=== PATIENT | male | born 1960 | race Caucasian/White ===

== ENCOUNTER 2016-10-23 19:56 | Inpatient (IN) | payer OTHER ==
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
[2016-10-23 20:58] VITALS: BMI 25.7
[2016-10-23] MEDS ORDERED: ACETAMINOPHEN 325 MG TABLET (FP) PO PRN (21:00)
[2016-10-23] MEDS ORDERED: MAGNESIUM HYDROX 2400MG/30ML ORAL SUSPENSION 30 ML CUP PO PRN (21:00)
[2016-10-23] MEDS ORDERED: MENTHOL/PHENOL 1 EACH UD MM PRN (21:00)
[2016-10-23] MEDS ORDERED: hydrOXYzine PAMOATE 50 MG CAPSULE (FP) PO PRN (21:00)
[2016-10-23] MEDS ORDERED: MAG HYDROX/AL HYDROX/SIMETH 30 ML UNIT-DOSE CUP PO PRN (21:00)
[2016-10-23] MEDS ORDERED: guaiFENesin/D-METHORPHAN HB 10 ML UNIT-DOSE CUPS PO PRN (21:00)
[2016-10-23] MEDS ORDERED: NICOTINE POLACRILEX 2 MG GUM BUC PRN (21:00)
[2016-10-23] MEDS ORDERED: chlordiazePOXIDE HCL 25 MG CAPSULE PO ONE (21:00)
[2016-10-23] MEDS ORDERED: diphenhydrAMINE HCL 50 MG CAPSULE PO PRN (21:00)
[2016-10-23] MEDS ORDERED: chlordiazePOXIDE HCL 25 MG CAPSULE PO PRN (21:00)
[2016-10-23] MEDS ORDERED: LOPERAMIDE HCL 2 MG CAPSULE PO PRN (21:00)
[2016-10-23] MEDS ORDERED: IBUPROFEN 400 MG TABLET (FP) PO PRN (21:00)
[2016-10-23] MEDS ORDERED: MAGNESIUM CITRATE 300 ML BOTTLE PO PRN (21:00)
[2016-10-23] MEDS ORDERED: P-EPHED 60MG/TRIPROLIDI 2.5MG TABLET PO PRN (21:00)
[2016-10-23] MEDS ORDERED: cloNIDine HCL 0.1 MG TABLET PO PRN (21:02)
[2016-10-23] MEDS: THIAMINE HCL 100 MG TABLET (FP) PO SCH (22:55)
[2016-10-23] MEDS: chlordiazePOXIDE HCL 25 MG CAPSULE PO SCH (23:13)
[2016-10-24] MEDS: chlordiazePOXIDE HCL 25 MG CAPSULE PO SCH ×4 (05:47→22:25)
--- NOTE | 2016-10-24 09:07 | CONSULT ---
[facility] Psychiatric Consult - Data Date of interview: 10/24/16 Admission source: [facility] Identifying data: This is 56 years old male with no psychiatric hospitalization history intoxicated with: Alcohol, Cannabis and Nicotine Substance Abuse History: - Smoking Cessation. Smoking history: Current every day smoker. Have you smoked in the past 12 months: Yes. Aproximately how many cigarettes per day: 5. Cigars Per Day: 1 (Occasional.). Hx Chewing Tobacco Use : No. Initiated information on smoking cessation: Yes. 'Breaking Loose' booklet given: 10/23/16. - Substance & Tx. History. Hx Alcohol Use: Yes. Hx Substance Use: Yes. Substance Use Type: Alcohol, Marijuana. Hx Substance Use Treatment: Yes (DETOX ). - Substances Abused. Alcohol. Route: Oral. Frequency: Daily. Amount used: 1 PINT OF LIQUOR. Age of first use: 15. Date of Last Use: 10/22/16. Marijuana/Hashish. Route: Smoking. Frequency: 1-2 times per week. Amount used: $5. Age of first use: 15. Date of Last Use: 12/26 Medical History: Seizure history, Hepc+, Psychiatric History: Patient reports mhistoryt of depression, rep[orts no history ofm p[-sychiatric hospitalization, reports no meications taking prior to admsision, reports suicidal ideations about 2 weeks ago being sober and asking to start medications for depression Physical/Sexual Abuse/Trauma History: Denies Additional Comment: Prozac 10mg po qd Mental Status Exam - Mental Status Exam Alert and Oriented to: Person Cognitive Function: Fair Patient Appearance: Well Groomed Mood: Anxious Affect: Mood Congruent Patient Behavior: Cooperative Speech Pattern: Appropriate Voice Loudness: Normal Thought Process: Goal Oriented Thought Disorder: Being Controlled Hallucinations: Denies Suicidal Ideation: Denies Homicidal Ideation: Denies Insight/Judgement: Fair Sleep: Difficulty falling asleep Appetite: Fair Muscle strength/Tone: Normal Gait/Station: Normal Additional Comments: Prozac 10mg poqd Psychiatric Findings - Problem List ([place] 1, 2,3) (1) Alcohol dependence with withdrawal, uncomplicated Current Visit: Yes Status: Chronic (2) Cannabis dependence Current Visit: Yes Status: Chronic (3) Nicotine dependence Current Visit: Yes Status: Chronic Qualifiers: Nicotine product type: cigarettes Substance use status: uncomplicated Qualified Code(s): F17.210 - Nicotine dependence, cigarettes, uncomplicated (4) Drug-induced mood disorder Current Visit: Yes Status: Suspected - Initial Treatment Plan Initial Treatment Plan: Prozac 10mg poqd
--- NOTE | 2016-10-24 09:58 | PN ---
S CIWA - CIWA Score Nausea/Vomitin-No Nausea/No Vomiting Muscle Tremors: 4-Moderate,w/Arms Extend Anxiety: 3 Agitation: 3 Paroxysmal Sweats: 3 Orientation: 0-Oriented Tacttile Disturbances: 0-None Auditory Disturbances: 0-None Visual Disturbances: 0-None Headache: 0-None Present CIWA-Ar Total Score: 13 BHS Progress Note (SOAP) Subjective: shakes sweats headache interrupted sleep body aches Objective: 10/24/16 09:57 Vital Signs Temperature 97.9 F 10/24/16 09:30 Pulse Rate 81 10/24/16 09:30 Respiratory Rate 16 10/24/16 09:30 Blood Pressure 130/99 10/24/16 09:30 O2 Sat by Pulse Oximetry (%) labs pending awake/alert ambulating no acute distress Assessment: 10/24/16 09:57 withdrawal sx Plan: continue detox increase fluids labs pending
[2016-10-24 10:04] LABS: MCHC 33.4 g/dl (32.0-35.9); MEAN PLT VOLUME 9.7 fl (7.5-11.1); PLATELET COUNT 51 K/MM3 (134-434); RDW 13.4 % (11.9-15.9); WHITE BLOOD COUNT 4.9 K/mm3 (4.0-10.0)
[2016-10-24] MEDS: PRENATAL VITAMINS W/ FOLIC ACID TABLET (FP) PO SCH (10:05)
[2016-10-24] MEDS: FLUoxetine HCL 10 MG CAPSULE (FP) PO SCH (10:05)
[2016-10-24] MEDS: levETIRAcetam 250 MG TABLET (FP) PO SCH ×2 (10:05→22:25)
[2016-10-24] MEDS: LORATADINE 10 MG TABLET PO SCH (10:06)
[2016-10-24] MEDS: NICOTINE 14 MG/24 HOURS TOPICAL PATCH TD SCH (10:08)
[2016-10-24 10:09] LABS: ALBUMIN 3.4 g/dl (3.4-5.0); ANION GAP 7 (8-16); CALCIUM 8.7 mg/dL (8.5-10.1); CO2 31 mmol/L (21-32); GLUCOSE,RANDOM 113 mg/dL (74-106)
[2016-10-24 10:14] LABS: ALK PHOS 71 U/L (45-117); BILIRUBIN,TOTAL 0.9 mg/dL (0.2-1.0); CREATININE 0.8 mg/dL (0.7-1.3); SGOT/AST 104 U/L (15-37); SGPT/ALT 72 U/L (12-78); TOT PROT 7.4 g/dl (6.4-8.2)
--- NOTE | 2016-10-24 13:02 | EKG ---
Test Reason : Blood Pressure : / mmHG Vent. Rate : 075 BPM Atrial Rate : 075 BPM P-R Int : 120 ms QRS Dur : 076 ms QT Int : 378 ms P-R-T Axes : 074 023 036 degrees QTc Int : 422 ms NORMAL SINUS RHYTHM POSSIBLE LEFT ATRIAL ENLARGEMENT BORDERLINE ECG NO PREVIOUS ECGS AVAILABLE Confirmed by XU CARD MD ([id number]) on 10/24/2016 1:01:39 PM Referred By: Confirmed By:XU CARD MD
[2016-10-24] MEDS: THIAMINE HCL 100 MG TABLET (FP) PO SCH (22:25)
[2016-10-25] MEDS: chlordiazePOXIDE HCL 25 MG CAPSULE PO SCH ×3 (06:17→17:38)
--- NOTE | 2016-10-25 10:10 | PN ---
S CIWA - CIWA Score Nausea/Vomitin Muscle Tremors: 3 Anxiety: 2 Agitation: 2 Paroxysmal Sweats: 1-Minimal Palms Moist Orientation: 0-Oriented Tacttile Disturbances: 1-Very Mild Itch/Numbness Auditory Disturbances: 1-Very Mild Visual Disturbances: 1-Very Mild Sensitivity Headache: 2-Mild CIWA-Ar Total Score: 16 S Progress Note (SOAP) Subjective: ALERT,IRRITABLE,ANXIOUS,INTERRUPTED SLEEP,TREMOR Objective: 10/25/16 10:09 Vital Signs Temperature 99.0 F 10/25/16 09:35 Pulse Rate 81 10/25/16 09:35 Respiratory Rate 16 10/25/16 09:35 Blood Pressure 112/71 10/25/16 09:35 O2 Sat by Pulse Oximetry (%) Laboratory Last Values WBC 4.9 K/mm3 (4.0-10.0) 10/24/16 08:00 RBC 4.09 M/mm3 (4.00-5.60) 10/24/16 08:00 Hgb 13.5 GM/dL (11.7-16.9) 10/24/16 08:00 Hct 40.5 % (35.4-49) 10/24/16 08:00 MCV 99.0 fl (80-96) H 10/24/16 08:00 MCHC 33.4 g/dl (32.0-35.9) 10/24/16 08:00 RDW 13.4 % (11.9-15.9) 10/24/16 08:00 Plt Count 51 K/MM3 (134-434) L D 10/24/16 08:00 MPV 9.7 fl (7.5-11.1) 10/24/16 08:00 Sodium 136 mmol/L (136-145) 10/24/16 08:00 Potassium 3.8 mmol/L (3.5-5.1) 10/24/16 08:00 Chloride 98 mmol/L (98-107) 10/24/16 08:00 Carbon Dioxide 31 mmol/L (21-32) 10/24/16 08:00 Anion Gap 7 (8-16) L 10/24/16 08:00 BUN 15 mg/dL (7-18) 10/24/16 08:00 Creatinine 0.8 mg/dL (0.7-1.3) 10/24/16 08:00 Creat Clearance w eGFR > 60 (>60) 10/24/16 08:00 Random Glucose 113 mg/dL (74-106) H 10/24/16 08:00 Calcium 8.7 mg/dL (8.5-10.1) 10/24/16 08:00 Total Bilirubin 0.9 mg/dL (0.2-1.0) D 10/24/16 08:00 AST 104 U/L (15-37) H D 10/24/16 08:00 ALT 72 U/L (12-78) 10/24/16 08:00 Alkaline Phosphatase 71 U/L (45-117) 10/24/16 08:00 Total Protein 7.4 g/dl (6.4-8.2) 10/24/16 08:00 Albumin 3.4 g/dl (3.4-5.0) 10/24/16 08:00 RPR Titer Nonreactive (NONREACTIVE) 10/24/16 08:00 Assessment: 10/25/16 10:09 WITHDRAWAL SYMPTOM Plan: CONTINUE DETOX
[2016-10-25] MEDS: PRENATAL VITAMINS W/ FOLIC ACID TABLET (FP) PO SCH (10:25)
[2016-10-25] MEDS: levETIRAcetam 250 MG TABLET (FP) PO SCH ×2 (10:25→22:08)
[2016-10-25] MEDS: LORATADINE 10 MG TABLET PO SCH (10:25)
[2016-10-25] MEDS: FLUoxetine HCL 10 MG CAPSULE (FP) PO SCH (10:26)
[2016-10-25] MEDS: NICOTINE 14 MG/24 HOURS TOPICAL PATCH TD SCH (10:26)
[2016-10-25 10:28] LABS: BASOPHIL 0.9 % (0-2.0); EOSINOPHIL 5.7 % (0-4.5); MCH 33.3 pg (25.7-33.7); MCHC 33.3 g/dl (32.0-35.9); MEAN CELL VOLUME 99.9 fl (80-96); NEUTROPHILS 58.3 % (42.8-82.8); PLATELET COUNT 69 K/MM3 (134-434); RDW 13.4 % (11.9-15.9)
[2016-10-25 11:12] LABS: ALBUMIN 3.1 g/dl (3.4-5.0); ALK PHOS 61 U/L (45-117); ANION GAP 11 (8-16); CALCIUM 8.4 mg/dL (8.5-10.1); CO2 28 mmol/L (21-32); CREATININE 0.8 mg/dL (0.7-1.3); GLUCOSE,RANDOM 110 mg/dL (74-106); SGOT/AST 97 U/L (15-37); SGPT/ALT 78 U/L (12-78); TOT PROT 6.8 g/dl (6.4-8.2)
[2016-10-25 19:22] LABS: URINE APPEARANCE CLEAR; URINE BILIRUBIN NEGATIVE (NEGATIVE); URINE BLOOD NEGATIVE (NEGATIVE); URINE COLOR YELLOW; URINE GLUCOSE (UA) NEGATIVE (NEGATIVE); URINE KETONE NEGATIVE (NEGATIVE); URINE NITRITE NEGATIVE (NEGATIVE); URINE PROTEIN NEGATIVE (NEGATIVE); URINE UROBILINOGEN NEGATIVE E.U./dl (0.2-1.0)
[2016-10-25 19:26] LABS: URINE LEUK ESTERASE TRACE (NEGATIVE)
[2016-10-25 19:38] LABS: URINE MUCUS RARE; URINE RBC <1 /hpf (0-3); URINE WBC 5 /hpf (3-5)
[2016-10-25] MEDS: THIAMINE HCL 100 MG TABLET (FP) PO SCH (22:08)
[2016-10-25] MEDS: chlordiazePOXIDE 5 MG CAPSULE PO SCH (22:10)
[2016-10-26] MEDS: chlordiazePOXIDE 5 MG CAPSULE PO SCH ×3 (05:28→17:55)
[2016-10-26] MEDS: levETIRAcetam 250 MG TABLET (FP) PO SCH ×2 (10:06→22:10)
[2016-10-26] MEDS: FLUoxetine HCL 10 MG CAPSULE (FP) PO SCH (10:06)
[2016-10-26] MEDS: LORATADINE 10 MG TABLET PO SCH (10:07)
[2016-10-26] MEDS: PRENATAL VITAMINS W/ FOLIC ACID TABLET (FP) PO SCH (10:07)
[2016-10-26] MEDS: NICOTINE 14 MG/24 HOURS TOPICAL PATCH TD SCH (10:07)
--- NOTE | 2016-10-26 10:16 | PN ---
BHS Progress Note (SOAP) Subjective: feeling better sweating Objective: 10/26/16 10:19 Vital Signs Temperature 97.9 F 10/26/16 09:34 Pulse Rate 72 10/26/16 09:34 Respiratory Rate 18 10/26/16 09:34 Blood Pressure 103/73 10/26/16 09:34 O2 Sat by Pulse Oximetry (%) awake/alert ambulating no acute distress Assessment: 10/26/16 10:19 withdrawal sx Plan: continue detox increase fluids d/c in am
[2016-10-26 14:28] LABS: URINE APPEARANCE CLEAR; URINE BILIRUBIN NEGATIVE (NEGATIVE); URINE BLOOD NEGATIVE (NEGATIVE); URINE COLOR YELLOW; URINE GLUCOSE (UA) NEGATIVE (NEGATIVE); URINE KETONE NEGATIVE (NEGATIVE); URINE NITRITE NEGATIVE (NEGATIVE); URINE PROTEIN NEGATIVE (NEGATIVE); URINE UROBILINOGEN 4.0 E.U/dl E.U./dl (0.2-1.0)
[2016-10-26 14:50] LABS: URINE LEUK ESTERASE 1+ (NEGATIVE)
[2016-10-26 15:00] LABS: URINE MUCUS RARE; URINE RBC 1 /hpf (0-3); URINE WBC 5 /hpf (3-5)
[2016-10-26] MEDS: chlordiazePOXIDE HCL 10 MG CAPSULE PO SCH (22:34)
[2016-10-26] MEDS: THIAMINE HCL 100 MG TABLET (FP) PO SCH (22:34)
[2016-10-27] MEDS: chlordiazePOXIDE HCL 10 MG CAPSULE PO SCH (05:18)
[2016-10-27 06:32] VITALS: TEMP 97.5
--- NOTE | 2016-10-27 09:10 | PN ---
S Progress Note (SOAP) Subjective: ALERT,NO COMPLAINT Objective: 10/27/16 09:08 Vital Signs Temperature 97.5 F L 10/27/16 06:31 Pulse Rate 70 10/27/16 06:31 Respiratory Rate 18 10/27/16 06:31 Blood Pressure 121/80 10/27/16 06:31 O2 Sat by Pulse Oximetry (%) Assessment: 10/27/16 09:09 DETOX COMPLETED,NO WITHDRAWAL SYMPTOM Plan: DISCHARGE TODAY,FOLLOW UP WITH AFTER CARE PROGRAM ARRANGEMENT
--- NOTE | 2016-10-27 09:13 | DS ---
[facility] Detox Discharge Summary Admission Date: 10/23/16 Discharge Date: 10/27/16 - History Present History: Alcohol Dependence, Cocaine Dependence Additional Comments: FOLLOW UP WITH AFTER [facility] PROGRAM ARRANGEMENT AND PMD FOR MEDICAL PROBLEM Pertinent Past History: NICOTINE DEPENDENCE SEIZURE HEPATITIS C - Physical Exam Results Vital Signs: Vital Signs Temperature 97.5 F L 10/27/16 06:31 Pulse Rate 70 10/27/16 06:31 Respiratory Rate 18 10/27/16 06:31 Blood Pressure 121/80 10/27/16 06:31 O2 Sat by Pulse Oximetry (%) Pertinent Admission Physical Exam Findings: WITHDRAWAL SYMPTOM - Treatment Hospital Course: Detox Protocol Followed, Detoxed Safely, Responded well, Discharged Condition Good - Medication Discharge Medications: Ambulatory Orders Levetiracetam [Keppra -] 750 mg PO BID #60 tablet 04/28/16 Fluoxetine HCl [Prozac -] 10 mg PO DAILY #30 tablet 10/24/16 - AMA Did Patient Leave Against Medical Advice: No
[2016-10-27 09:21] VITALS: BP 118/78; PULSE 73
[2016-10-27] MEDS: levETIRAcetam 250 MG TABLET (FP) PO SCH (09:37)
[2016-10-27] MEDS: LORATADINE 10 MG TABLET PO SCH (09:37)
[2016-10-27] MEDS: PRENATAL VITAMINS W/ FOLIC ACID TABLET (FP) PO SCH (09:37)
[2016-10-27] MEDS: FLUoxetine HCL 10 MG CAPSULE (FP) PO SCH (09:37)
== END 2016-10-27 09:42 | disposition home or self-care (01) | DRG 775 ==
LOC: YASAS 19:56 → Y6N 21:37
PROVIDERS: ADMIT Internal Medicine Addiction Medicine; ATTEND Internal Medicine Addiction Medicine
PROC: HZ2ZZZZ Detoxification Services for Substance Abuse Treatment (ICD-10-PCS; principal; 2016-10-27)
DX: F10.230 Alcohol dependence with withdrawal, uncomplicated (principal); F12.20 Cannabis dependence, uncomplicated; F17.210 Nicotine dependence, cigarettes, uncomplicated; F19.24 Other psychoactive substance dependence with psychoactive substance-induced mood disorder; F32.9 Major depressive disorder, single episode, unspecified; G40.909 Epilepsy, unspecified, not intractable, without status epilepticus; B18.2 Chronic viral hepatitis C
CPT/HCPCS: 36415; 80053; 81003; 81015; 85025; 85027; 86593; 93005; 93010

== ENCOUNTER 2017-05-24 12:08 | Inpatient (IN) | payer OTHER ==
[2017-05-24 13:27] VITALS: BMI 26.9
[2017-05-24] MEDS ORDERED: ACETAMINOPHEN 325 MG TABLET (FP) PO PRN (17:13)
[2017-05-24] MEDS ORDERED: guaiFENesin/D-METHORPHAN HB 10 ML UNIT-DOSE CUPS PO PRN (17:13)
[2017-05-24] MEDS ORDERED: NICOTINE POLACRILEX 2 MG GUM BC PRN (17:13)
[2017-05-24] MEDS ORDERED: MAGNESIUM CITRATE 300 ML BOTTLE PO PRN (17:13)
[2017-05-24] MEDS ORDERED: IBUPROFEN 400 MG TABLET (FP) PO PRN (17:13)
[2017-05-24] MEDS ORDERED: P-EPHED 60MG/TRIPROLIDI 2.5MG TABLET PO PRN (17:13)
[2017-05-24] MEDS ORDERED: MAG HYDROX/AL HYDROX/SIMETH 30 ML UNIT-DOSE CUP PO PRN (17:13)
[2017-05-24] MEDS ORDERED: MENTHOL/PHENOL 1 EACH UD MM PRN (17:13)
[2017-05-24] MEDS ORDERED: MAGNESIUM HYDROX 2400MG/30ML ORAL SUSPENSION 30 ML CUP PO PRN (17:13)
[2017-05-24] MEDS ORDERED: LOPERAMIDE HCL 2 MG CAPSULE PO PRN (17:13)
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
[2017-05-24] MEDS ORDERED: TUBERCULIN PPD 5 TU/0.1ML VIAL ID ONE (18:57)
[2017-05-24] MEDS: NICOTINE 14 MG/24 HOURS TOPICAL PATCH TD SCH (18:58)
[2017-05-24] MEDS: THIAMINE HCL 100 MG TABLET (FP) PO SCH (21:54)
[2017-05-24] MEDS: levETIRAcetam 250 MG TABLET (FP) PO SCH (21:54)
[2017-05-24] MEDS ORDERED: levETIRAcetam 250 MG TABLET (FP) PO SCH (22:00)
[2017-05-24 23:08] LABS: PH,URINE 5.5 (5.0-8.0); URINE APPEARANCE CLEAR; URINE BILIRUBIN NEGATIVE (NEGATIVE); URINE BLOOD NEGATIVE (NEGATIVE); URINE COLOR LT. YELLOW; URINE GLUCOSE (UA) NEGATIVE (NEGATIVE); URINE KETONE NEGATIVE (NEGATIVE); URINE LEUK ESTERASE NEGATIVE (NEGATIVE); URINE NITRITE NEGATIVE (NEGATIVE); URINE PROTEIN NEGATIVE (NEGATIVE); URINE UROBILINOGEN 0.2 mg/dL (0.2-1.0)
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
[2017-05-25 10:01] LABS: HEMATOCRIT 43.2 % (35.4-49); HEMOGLOBIN 14.2 GM/dL (11.7-16.9); MCH 33.9 pg (25.7-33.7); MCHC 32.8 g/dl (32.0-35.9); MEAN CELL VOLUME 103.5 fl (80-96); MEAN PLT VOLUME 11.6 fl (7.5-11.1); PLATELET COUNT 143 K/MM3 (134-434); RBC 4.18 M/mm3 (4.00-5.60); RDW 12.8 % (11.9-15.9)
[2017-05-25 10:14] LABS: ANION GAP 5 (8-16); BILIRUBIN,TOTAL 0.6 mg/dL (0.2-1.0); BLOOD UREA NITROGEN 21 mg/dL (7-18); CALCIUM 9.3 mg/dL (8.5-10.1); CHLORIDE 98 mmol/L (98-107); CO2 31 mmol/L (21-32); CREATININE 0.9 mg/dL (0.7-1.3); GLUCOSE,RANDOM 94 mg/dL (74-106); POTASSIUM 4.8 mmol/L (3.5-5.1); SGOT/AST 148 U/L (15-37); SGPT/ALT 228 U/L (12-78); SODIUM 134 mmol/L (136-145); TOT PROT 8.8 g/dl (6.4-8.2)
[2017-05-25 10:15] LABS: ALK PHOS 85 U/L (45-117)
[2017-05-25] MEDS: levETIRAcetam 250 MG TABLET (FP) PO SCH ×2 (10:31→21:28)
[2017-05-25] MEDS ORDERED: PT OWN MED DRAWER 7, Y5N ONE ×2 (11:00→11:25)
[2017-05-25] MEDS: FLUoxetine HCL 10 MG CAPSULE (FP) PO SCH (11:01)
[2017-05-25] MEDS: PRENATAL VITAMINS W/ FOLIC ACID TABLET (FP) PO SCH (11:01)
[2017-05-25] MEDS: NICOTINE 14 MG/24 HOURS TOPICAL PATCH TD SCH (11:01)
--- NOTE | 2017-05-25 11:40 | EKG ---
Test Reason : Blood Pressure : / mmHG Vent. Rate : 072 BPM Atrial Rate : 072 BPM P-R Int : 132 ms QRS Dur : 090 ms QT Int : 376 ms P-R-T Axes : 070 017 025 degrees QTc Int : 411 ms NORMAL SINUS RHYTHM POSSIBLE LEFT ATRIAL ENLARGEMENT SEPTAL INFARCT , AGE UNDETERMINED ABNORMAL ECG WHEN COMPARED WITH ECG OF 23-OCT-2016 21:47, NO SIGNIFICANT CHANGE WAS FOUND Confirmed by SABRA LÓPEZ MD ([id number]) on 05/25/2017 11:39:39 AM Referred By: Confirmed By:SABRA LÓPEZ MD
[2017-05-25] MEDS ORDERED: FLU VACCINE QUAD 60 MCG/0.5 ML (MDV 17-18) IM ONE (12:00)
[2017-05-25] MEDS: THIAMINE HCL 100 MG TABLET (FP) PO SCH (21:28)
[2017-05-25] MEDS: hydrOXYzine PAMOATE 50 MG CAPSULE (FP) PO PRN (21:29)
[2017-05-26] MEDS: NICOTINE 14 MG/24 HOURS TOPICAL PATCH TD SCH (10:47)
[2017-05-26] MEDS: levETIRAcetam 250 MG TABLET (FP) PO SCH ×2 (10:47→21:54)
[2017-05-26] MEDS: FLUoxetine HCL 10 MG CAPSULE (FP) PO SCH (10:47)
[2017-05-26] MEDS: PRENATAL VITAMINS W/ FOLIC ACID TABLET (FP) PO SCH (10:47)
[2017-05-26] MEDS: THIAMINE HCL 100 MG TABLET (FP) PO SCH (21:54)
[2017-05-26] MEDS: hydrOXYzine PAMOATE 50 MG CAPSULE (FP) PO PRN (21:54)
[2017-05-27] MEDS: NICOTINE 14 MG/24 HOURS TOPICAL PATCH TD SCH (10:17)
[2017-05-27] MEDS: levETIRAcetam 250 MG TABLET (FP) PO SCH ×2 (10:17→21:10)
[2017-05-27] MEDS: PRENATAL VITAMINS W/ FOLIC ACID TABLET (FP) PO SCH (10:17)
[2017-05-27] MEDS: FLUoxetine HCL 10 MG CAPSULE (FP) PO SCH (10:18)
[2017-05-27] MEDS: THIAMINE HCL 100 MG TABLET (FP) PO SCH (21:10)
[2017-05-27] MEDS: hydrOXYzine PAMOATE 50 MG CAPSULE (FP) PO PRN (21:10)
[2017-05-28] MEDS ORDERED: SUVOREXANT 10 MG TABLET PO PRN (08:02)
[2017-05-28] MEDS: FLUoxetine HCL 10 MG CAPSULE (FP) PO SCH (10:21)
[2017-05-28] MEDS: levETIRAcetam 250 MG TABLET (FP) PO SCH ×2 (10:21→21:32)
[2017-05-28] MEDS: NICOTINE 14 MG/24 HOURS TOPICAL PATCH TD SCH (10:21)
[2017-05-28] MEDS: PRENATAL VITAMINS W/ FOLIC ACID TABLET (FP) PO SCH (10:21)
[2017-05-28] MEDS: THIAMINE HCL 100 MG TABLET (FP) PO SCH (21:32)
[2017-05-28] MEDS: hydrOXYzine PAMOATE 50 MG CAPSULE (FP) PO PRN (21:32)
[2017-05-29] MEDS: NICOTINE 14 MG/24 HOURS TOPICAL PATCH TD SCH (10:28)
[2017-05-29] MEDS: levETIRAcetam 250 MG TABLET (FP) PO SCH ×2 (10:28→22:00)
[2017-05-29] MEDS: FLUoxetine HCL 10 MG CAPSULE (FP) PO SCH (10:28)
[2017-05-29] MEDS: PRENATAL VITAMINS W/ FOLIC ACID TABLET (FP) PO SCH (10:28)
[2017-05-29] MEDS ORDERED: PT OWN MED DRAWER 7, Y5N ONE (14:07)
[2017-05-29] MEDS: THIAMINE HCL 100 MG TABLET (FP) PO SCH (22:00)
[2017-05-29] MEDS: hydrOXYzine PAMOATE 50 MG CAPSULE (FP) PO PRN (22:00)
[2017-05-30] MEDS: diphenhydrAMINE HCL 25 MG CAPSULE (FP) PO PRN ×2 (10:29→21:32)
[2017-05-30] MEDS: NICOTINE 14 MG/24 HOURS TOPICAL PATCH TD SCH (10:30)
[2017-05-30] MEDS: FLUoxetine HCL 10 MG CAPSULE (FP) PO SCH (10:30)
[2017-05-30] MEDS: PRENATAL VITAMINS W/ FOLIC ACID TABLET (FP) PO SCH (10:30)
[2017-05-30] MEDS: levETIRAcetam 250 MG TABLET (FP) PO SCH ×2 (10:30→21:32)
[2017-05-30] MEDS: THIAMINE HCL 100 MG TABLET (FP) PO SCH (21:31)
[2017-05-30] MEDS: SUVOREXANT 10 MG TABLET PO PRN (21:34)
[2017-05-31] MEDS: levETIRAcetam 250 MG TABLET (FP) PO SCH ×2 (10:29→21:46)
[2017-05-31] MEDS: FLUoxetine HCL 10 MG CAPSULE (FP) PO SCH (10:29)
[2017-05-31] MEDS: PRENATAL VITAMINS W/ FOLIC ACID TABLET (FP) PO SCH (10:29)
[2017-05-31] MEDS: NICOTINE 14 MG/24 HOURS TOPICAL PATCH TD SCH (10:30)
[2017-05-31] MEDS: THIAMINE HCL 100 MG TABLET (FP) PO SCH (21:46)
[2017-05-31] MEDS: diphenhydrAMINE HCL 25 MG CAPSULE (FP) PO PRN (21:47)
[2017-05-31] MEDS: SUVOREXANT 10 MG TABLET PO PRN (21:50)
[2017-06-01] MEDS: PRENATAL VITAMINS W/ FOLIC ACID TABLET (FP) PO SCH (10:26)
[2017-06-01] MEDS: FLUoxetine HCL 10 MG CAPSULE (FP) PO SCH (10:27)
[2017-06-01] MEDS: levETIRAcetam 250 MG TABLET (FP) PO SCH ×2 (10:27→21:42)
[2017-06-01] MEDS: NICOTINE 14 MG/24 HOURS TOPICAL PATCH TD SCH (10:27)
[2017-06-01] MEDS: diphenhydrAMINE HCL 25 MG CAPSULE (FP) PO PRN ×2 (10:28→21:44)
[2017-06-01] MEDS: SUVOREXANT 10 MG TABLET PO PRN (21:42)
[2017-06-01] MEDS: THIAMINE HCL 100 MG TABLET (FP) PO SCH (21:42)
[2017-06-02] MEDS: PRENATAL VITAMINS W/ FOLIC ACID TABLET (FP) PO SCH (10:48)
[2017-06-02] MEDS: levETIRAcetam 250 MG TABLET (FP) PO SCH ×2 (10:48→21:10)
[2017-06-02] MEDS: NICOTINE 14 MG/24 HOURS TOPICAL PATCH TD SCH (10:48)
[2017-06-02] MEDS: FLUoxetine HCL 10 MG CAPSULE (FP) PO SCH (10:48)
[2017-06-02] MEDS: diphenhydrAMINE HCL 25 MG CAPSULE (FP) PO PRN ×2 (10:49→21:10)
[2017-06-02] MEDS: SUVOREXANT 10 MG TABLET PO PRN (21:10)
[2017-06-02] MEDS: THIAMINE HCL 100 MG TABLET (FP) PO SCH (21:10)
[2017-06-02] MEDS: hydrOXYzine PAMOATE 50 MG CAPSULE (FP) PO PRN (21:10)
[2017-06-03] MEDS: FLUoxetine HCL 10 MG CAPSULE (FP) PO SCH (10:35)
[2017-06-03] MEDS: diphenhydrAMINE HCL 25 MG CAPSULE (FP) PO PRN ×2 (10:35→22:12)
[2017-06-03] MEDS: levETIRAcetam 250 MG TABLET (FP) PO SCH ×2 (10:35→22:12)
[2017-06-03] MEDS: NICOTINE 14 MG/24 HOURS TOPICAL PATCH TD SCH (10:35)
[2017-06-03] MEDS: PRENATAL VITAMINS W/ FOLIC ACID TABLET (FP) PO SCH (10:35)
[2017-06-03] MEDS: THIAMINE HCL 100 MG TABLET (FP) PO SCH (22:12)
[2017-06-03] MEDS: SUVOREXANT 10 MG TABLET PO PRN (22:12)
[2017-06-04] MEDS: PRENATAL VITAMINS W/ FOLIC ACID TABLET (FP) PO SCH (10:39)
[2017-06-04] MEDS: FLUoxetine HCL 10 MG CAPSULE (FP) PO SCH (10:39)
[2017-06-04] MEDS: NICOTINE 14 MG/24 HOURS TOPICAL PATCH TD SCH (10:39)
[2017-06-04] MEDS: levETIRAcetam 250 MG TABLET (FP) PO SCH ×2 (10:39→21:11)
[2017-06-04] MEDS: diphenhydrAMINE HCL 25 MG CAPSULE (FP) PO PRN (21:11)
[2017-06-04] MEDS: THIAMINE HCL 100 MG TABLET (FP) PO SCH (21:11)
[2017-06-04] MEDS: SUVOREXANT 10 MG TABLET PO PRN (21:11)
[2017-06-05] MEDS: levETIRAcetam 250 MG TABLET (FP) PO SCH ×2 (10:30→22:03)
[2017-06-05] MEDS: FLUoxetine HCL 10 MG CAPSULE (FP) PO SCH (10:30)
[2017-06-05] MEDS: NICOTINE 14 MG/24 HOURS TOPICAL PATCH TD SCH (10:30)
[2017-06-05] MEDS: PRENATAL VITAMINS W/ FOLIC ACID TABLET (FP) PO SCH (10:31)
[2017-06-05] MEDS: diphenhydrAMINE HCL 25 MG CAPSULE (FP) PO PRN (10:32)
[2017-06-05] MEDS: THIAMINE HCL 100 MG TABLET (FP) PO SCH (22:03)
[2017-06-05] MEDS: SUVOREXANT 10 MG TABLET PO PRN (22:04)
[2017-06-06] MEDS: NICOTINE 14 MG/24 HOURS TOPICAL PATCH TD SCH (10:35)
[2017-06-06] MEDS: levETIRAcetam 250 MG TABLET (FP) PO SCH ×2 (10:35→21:53)
[2017-06-06] MEDS: FLUoxetine HCL 10 MG CAPSULE (FP) PO SCH (10:35)
[2017-06-06] MEDS: PRENATAL VITAMINS W/ FOLIC ACID TABLET (FP) PO SCH (10:35)
[2017-06-06] MEDS: THIAMINE HCL 100 MG TABLET (FP) PO SCH (21:53)
[2017-06-06] MEDS: hydrOXYzine PAMOATE 50 MG CAPSULE (FP) PO PRN (21:54)
[2017-06-06] MEDS: diphenhydrAMINE HCL 25 MG CAPSULE (FP) PO PRN (21:54)
[2017-06-06] MEDS: SUVOREXANT 10 MG TABLET PO PRN (21:54)
[2017-06-07] MEDS: levETIRAcetam 250 MG TABLET (FP) PO SCH ×2 (10:46→22:05)
[2017-06-07] MEDS: PRENATAL VITAMINS W/ FOLIC ACID TABLET (FP) PO SCH (10:46)
[2017-06-07] MEDS: NICOTINE 14 MG/24 HOURS TOPICAL PATCH TD SCH (10:46)
[2017-06-07] MEDS: FLUoxetine HCL 10 MG CAPSULE (FP) PO SCH (10:46)
[2017-06-07] MEDS: diphenhydrAMINE HCL 25 MG CAPSULE (FP) PO PRN ×2 (10:47→22:05)
[2017-06-07] MEDS: THIAMINE HCL 100 MG TABLET (FP) PO SCH (22:05)
[2017-06-07] MEDS: hydrOXYzine PAMOATE 50 MG CAPSULE (FP) PO PRN (22:05)
[2017-06-07] MEDS: SUVOREXANT 10 MG TABLET PO PRN (22:06)
[2017-06-08] MEDS: levETIRAcetam 250 MG TABLET (FP) PO SCH ×2 (10:48→21:49)
[2017-06-08] MEDS: PRENATAL VITAMINS W/ FOLIC ACID TABLET (FP) PO SCH (10:48)
[2017-06-08] MEDS: NICOTINE 14 MG/24 HOURS TOPICAL PATCH TD SCH (10:48)
[2017-06-08] MEDS: FLUoxetine HCL 10 MG CAPSULE (FP) PO SCH (10:48)
[2017-06-08] MEDS: SUVOREXANT 10 MG TABLET PO PRN (21:48)
[2017-06-08] MEDS: diphenhydrAMINE HCL 25 MG CAPSULE (FP) PO PRN (21:48)
[2017-06-08] MEDS: hydrOXYzine PAMOATE 50 MG CAPSULE (FP) PO PRN (21:49)
[2017-06-08] MEDS: THIAMINE HCL 100 MG TABLET (FP) PO SCH (21:49)
[2017-06-09] MEDS: PRENATAL VITAMINS W/ FOLIC ACID TABLET (FP) PO SCH (10:07)
[2017-06-09] MEDS: FLUoxetine HCL 10 MG CAPSULE (FP) PO SCH (10:07)
[2017-06-09] MEDS: NICOTINE 14 MG/24 HOURS TOPICAL PATCH TD SCH (10:07)
[2017-06-09] MEDS: levETIRAcetam 250 MG TABLET (FP) PO SCH ×2 (10:07→21:28)
[2017-06-09] MEDS: THIAMINE HCL 100 MG TABLET (FP) PO SCH (21:28)
[2017-06-09] MEDS: SUVOREXANT 10 MG TABLET PO PRN (21:29)
[2017-06-09] MEDS: hydrOXYzine PAMOATE 50 MG CAPSULE (FP) PO PRN (21:29)
[2017-06-09] MEDS: diphenhydrAMINE HCL 25 MG CAPSULE (FP) PO PRN (21:29)
[2017-06-10] MEDS: FLUoxetine HCL 10 MG CAPSULE (FP) PO SCH (09:50)
[2017-06-10] MEDS: levETIRAcetam 250 MG TABLET (FP) PO SCH ×2 (09:50→21:47)
[2017-06-10] MEDS: PRENATAL VITAMINS W/ FOLIC ACID TABLET (FP) PO SCH (09:50)
[2017-06-10] MEDS: NICOTINE 14 MG/24 HOURS TOPICAL PATCH TD SCH (09:50)
[2017-06-10] MEDS: THIAMINE HCL 100 MG TABLET (FP) PO SCH (21:47)
[2017-06-10] MEDS: SUVOREXANT 10 MG TABLET PO PRN (21:48)
[2017-06-10] MEDS: diphenhydrAMINE HCL 25 MG CAPSULE (FP) PO PRN (21:49)
[2017-06-11] MEDS: FLUoxetine HCL 10 MG CAPSULE (FP) PO SCH (10:00)
[2017-06-11] MEDS: PRENATAL VITAMINS W/ FOLIC ACID TABLET (FP) PO SCH (10:00)
[2017-06-11] MEDS: NICOTINE 14 MG/24 HOURS TOPICAL PATCH TD SCH (10:00)
[2017-06-11] MEDS: levETIRAcetam 250 MG TABLET (FP) PO SCH ×2 (10:00→22:04)
[2017-06-11] MEDS: THIAMINE HCL 100 MG TABLET (FP) PO SCH (22:04)
[2017-06-11] MEDS: diphenhydrAMINE HCL 25 MG CAPSULE (FP) PO PRN (22:06)
[2017-06-12] MEDS: NICOTINE 14 MG/24 HOURS TOPICAL PATCH TD SCH (10:24)
[2017-06-12] MEDS: levETIRAcetam 250 MG TABLET (FP) PO SCH ×2 (10:24→22:05)
[2017-06-12] MEDS: PRENATAL VITAMINS W/ FOLIC ACID TABLET (FP) PO SCH (10:24)
[2017-06-12] MEDS: FLUoxetine HCL 10 MG CAPSULE (FP) PO SCH (10:24)
[2017-06-12] MEDS: THIAMINE HCL 100 MG TABLET (FP) PO SCH (22:06)
[2017-06-12] MEDS: diphenhydrAMINE HCL 25 MG CAPSULE (FP) PO PRN (22:07)
[2017-06-13] MEDS: hydrOXYzine PAMOATE 50 MG CAPSULE (FP) PO PRN ×2 (00:59→21:49)
[2017-06-13] MEDS: levETIRAcetam 250 MG TABLET (FP) PO SCH ×2 (10:13→21:49)
[2017-06-13] MEDS: PRENATAL VITAMINS W/ FOLIC ACID TABLET (FP) PO SCH (10:13)
[2017-06-13] MEDS: FLUoxetine HCL 10 MG CAPSULE (FP) PO SCH (10:14)
[2017-06-13] MEDS: diphenhydrAMINE HCL 25 MG CAPSULE (FP) PO PRN ×2 (10:14→21:49)
[2017-06-13] MEDS: NICOTINE 14 MG/24 HOURS TOPICAL PATCH TD SCH (10:14)
[2017-06-13] MEDS ORDERED: AMMONIUM LACTATE 12% LOTION 225 GM BOTTLE TP PRN (13:25)
[2017-06-13] MEDS ORDERED: COLLOIDAL OATMEAL 1 BAR EACH TP PRN (13:25)
[2017-06-13] MEDS: SUVOREXANT 10 MG TABLET PO PRN (21:49)
[2017-06-13] MEDS: THIAMINE HCL 100 MG TABLET (FP) PO SCH (21:49)
[2017-06-13] MEDS ORDERED: COLLOIDAL OATMEAL 1 BAR EACH TP SCH (22:00)
[2017-06-14] MEDS: NICOTINE 14 MG/24 HOURS TOPICAL PATCH TD SCH (10:15)
[2017-06-14] MEDS: levETIRAcetam 250 MG TABLET (FP) PO SCH ×2 (10:15→21:55)
[2017-06-14] MEDS: PRENATAL VITAMINS W/ FOLIC ACID TABLET (FP) PO SCH (10:15)
[2017-06-14] MEDS: FLUoxetine HCL 10 MG CAPSULE (FP) PO SCH (10:15)
[2017-06-14] MEDS: hydrOXYzine PAMOATE 50 MG CAPSULE (FP) PO PRN (21:55)
[2017-06-14] MEDS: THIAMINE HCL 100 MG TABLET (FP) PO SCH (21:55)
[2017-06-14] MEDS: SUVOREXANT 10 MG TABLET PO PRN (21:55)
[2017-06-14] MEDS: diphenhydrAMINE HCL 25 MG CAPSULE (FP) PO PRN (21:55)
[2017-06-15] MEDS: PRENATAL VITAMINS W/ FOLIC ACID TABLET (FP) PO SCH (10:34)
[2017-06-15] MEDS: FLUoxetine HCL 10 MG CAPSULE (FP) PO SCH (10:34)
[2017-06-15] MEDS: levETIRAcetam 250 MG TABLET (FP) PO SCH ×2 (10:34→21:53)
[2017-06-15] MEDS: NICOTINE 14 MG/24 HOURS TOPICAL PATCH TD SCH (10:35)
[2017-06-15] MEDS: THIAMINE HCL 100 MG TABLET (FP) PO SCH (21:54)
[2017-06-15] MEDS: SUVOREXANT 10 MG TABLET PO PRN (21:56)
[2017-06-15] MEDS: diphenhydrAMINE HCL 25 MG CAPSULE (FP) PO PRN (21:56)
[2017-06-16] MEDS: PRENATAL VITAMINS W/ FOLIC ACID TABLET (FP) PO SCH (10:21)
[2017-06-16] MEDS: FLUoxetine HCL 10 MG CAPSULE (FP) PO SCH (10:21)
[2017-06-16] MEDS: levETIRAcetam 250 MG TABLET (FP) PO SCH ×2 (10:21→21:58)
[2017-06-16] MEDS: NICOTINE 14 MG/24 HOURS TOPICAL PATCH TD SCH (10:22)
[2017-06-16] MEDS: THIAMINE HCL 100 MG TABLET (FP) PO SCH (21:58)
[2017-06-16] MEDS: diphenhydrAMINE HCL 25 MG CAPSULE (FP) PO PRN (21:58)
[2017-06-16] MEDS: SUVOREXANT 10 MG TABLET PO PRN (21:58)
[2017-06-16] MEDS: hydrOXYzine PAMOATE 50 MG CAPSULE (FP) PO PRN (21:58)
[2017-06-17] MEDS: levETIRAcetam 250 MG TABLET (FP) PO SCH ×2 (10:19→21:46)
[2017-06-17] MEDS: PRENATAL VITAMINS W/ FOLIC ACID TABLET (FP) PO SCH (10:19)
[2017-06-17] MEDS: FLUoxetine HCL 10 MG CAPSULE (FP) PO SCH (10:19)
[2017-06-17] MEDS: NICOTINE 14 MG/24 HOURS TOPICAL PATCH TD SCH (10:21)
[2017-06-17] MEDS: hydrOXYzine PAMOATE 50 MG CAPSULE (FP) PO PRN (21:46)
[2017-06-17] MEDS: SUVOREXANT 10 MG TABLET PO PRN (21:46)
[2017-06-17] MEDS: THIAMINE HCL 100 MG TABLET (FP) PO SCH (21:46)
[2017-06-18] MEDS: levETIRAcetam 250 MG TABLET (FP) PO SCH ×2 (10:24→21:26)
[2017-06-18] MEDS: PRENATAL VITAMINS W/ FOLIC ACID TABLET (FP) PO SCH (10:24)
[2017-06-18] MEDS: FLUoxetine HCL 10 MG CAPSULE (FP) PO SCH (10:24)
[2017-06-18] MEDS: NICOTINE 14 MG/24 HOURS TOPICAL PATCH TD SCH (10:24)
[2017-06-18] MEDS: SUVOREXANT 10 MG TABLET PO PRN (21:26)
[2017-06-18] MEDS: THIAMINE HCL 100 MG TABLET (FP) PO SCH (21:26)
[2017-06-18] MEDS: diphenhydrAMINE HCL 25 MG CAPSULE (FP) PO PRN (21:26)
[2017-06-18] MEDS: hydrOXYzine PAMOATE 50 MG CAPSULE (FP) PO PRN (21:26)
[2017-06-19] MEDS ORDERED: SUVOREXANT 10 MG TABLET PO PRN (07:22)
[2017-06-19] MEDS: PRENATAL VITAMINS W/ FOLIC ACID TABLET (FP) PO SCH (10:19)
[2017-06-19] MEDS: levETIRAcetam 250 MG TABLET (FP) PO SCH ×2 (10:19→21:41)
[2017-06-19] MEDS: FLUoxetine HCL 10 MG CAPSULE (FP) PO SCH (10:19)
[2017-06-19] MEDS: NICOTINE 14 MG/24 HOURS TOPICAL PATCH TD SCH (10:20)
[2017-06-19] MEDS: THIAMINE HCL 100 MG TABLET (FP) PO SCH (21:41)
[2017-06-19] MEDS: SUVOREXANT 10 MG TABLET PO PRN (21:42)
--- NOTE | 2017-06-20 09:33 | PN ---
Psychiatric Progress Note Vital Signs: Vital Signs Period Temp Pulse Resp BP Sys/Elaine Pulse Ox Last 24 Hr 97.4 F 64 18-18 116/78 Date of Session: 06/20/17 Chief Complaint:: Discharge Note HPI: Patient addressing Alcohol and Cannabis Dependence comorbid with Nicotine Dependence, Substance-induced Mood Disorder and Substance-induced Sleep Disorder ROS: Seizure Disorder were medically managed Current Medications: Active Medications Generic Name Dose Route Start Last Admin Trade Name Freq PRN Reason Stop Dose Admin Acetaminophen 650 mg 05/24/17 17:13 Tylenol - PO Q4H PRN PAIN Al Hydroxide/Mg Hydroxide 30 ml 05/24/17 17:13 Mylanta Oral Suspension - PO Q6H PRN DYSPEPSIA Colloidal Oatmeal 1 applic 06/13/17 13:25 06/13/17 14:48 Aveeno Soap - TP 1 bar BID PRN Administration DRY SKIN Diphenhydramine HCl 25 mg 05/29/17 14:54 06/18/17 21:26 Benadryl - PO 25 mg Q6H PRN Administration FOR ITCHING Eucalyptus/Menthol/Phenol/Sorbitol 1 each 05/24/17 17:13 Cepastat Lozenge - MM Q4H PRN SORE THROAT Fluoxetine HCl 10 mg 05/25/17 10:30 06/19/17 10:19 Prozac - PO 10 mg DAILY ANIBAL Administration Guaifenesin 10 ml 05/24/17 17:13 Robitussin Dm - PO Q6H PRN COUGH Hydroxyzine Pamoate 50 mg 05/24/17 17:13 06/18/17 21:26 Vistaril - PO 50 mg Q4H PRN Administration AGITATION Ibuprofen 400 mg 05/24/17 17:13 Motrin - PO Q6H PRN SEVERE PAIN Lactic Acid 1 applic 06/13/17 13:25 Lac-Hydrin 12 TP BID PRN DRY SKIN Levetiracetam 750 mg 05/24/17 22:00 06/19/17 21:41 Keppra - PO 750 mg BID ANIBAL Administration Loperamide HCl 4 mg 05/24/17 17:13 Imodium - PO Q6H PRN DIARRHEA Magnesium Citrate 300 ml 05/24/17 17:13 Citroma - PO Q48H PRN CONSTIPATION Magnesium Hydroxide 30 ml 05/24/17 17:13 Milk Of Magnesia - PO DAILY PRN CONSTIPATION Nicotine 14 mg 05/24/17 17:45 06/19/17 10:20 Nicoderm Patch - TD Not Given DAILY ANIBAL Nicotine Polacrilex 2 mg 05/24/17 17:13 Nicorette Gum - BC Q2H PRN NICOTINE REPLACEMENT RX Multivit/Folic Acid/Iron 1 tab 05/25/17 10:00 06/19/17 10:19 Vitamins (Sjr) - PO 1 tab DAILY ANIBAL Administration Pseudoephedrine/Triprolidine 1 combo 05/24/17 17:13 Actifed - PO TID PRN NASAL CONGESTION Thiamine HCl 100 mg 05/24/17 22:00 06/19/17 21:41 Vitamin B1 - PO 100 mg HS ANIBAL Administration Current Side Effect: No Lab tests ordered: Yes Lab tests reviewed: Yes Provider note:: Patient will complete this program on 06/21/17. He has met his treatment goals but has refused referral for outpatient treatment. He responded well to Prozac 10mg po daily. Script for 30 days supply of that medication will be electronically transmitted to [facility] pharmacy at [address] [place] [address]. He is stable for discharge on 06/21/17 Total face to face time:: 35 Mental Status Exam - Mental Status Exam Alert and Oriented to: Time, Place, Person Cognitive Function: Fair Patient Appearance: Well Groomed Mood: Hopeful, Euthymic Affect: Appropriate Patient Behavior: Cooperative Speech Pattern: Clear Voice Loudness: Normal Thought Process: Intact, Goal Oriented Thought Disorder: Not Present Hallucinations: Denies Suicidal Ideation: Denies Homicidal Ideation: Denies Insight/Judgement: Fair Sleep: Fair Appetite: Good Muscle strength/Tone: Normal Gait/Station: Normal Psychiatric Treatment Plan - Problem List (1) Alcohol dependence Current Visit: Yes (2) Cannabis dependence Current Visit: Yes (3) Nicotine dependence Current Visit: Yes Qualifiers: (4) Substance induced mood disorder Current Visit: Yes (5) Substance-induced sleep disorder Current Visit: Yes (6) Injury of right forearm Current Visit: No Qualifiers: Encounter type: initial encounter Qualified Code(s): S59.911A - Unspecified injury of right forearm, initial encounter (7) Seizure disorder Current Visit: No Initial treatment plan: Patient will be discharged tomorrow but refuses referral for outpatient treatment
[2017-06-20] MEDS: FLUoxetine HCL 10 MG CAPSULE (FP) PO SCH (10:27)
[2017-06-20] MEDS: NICOTINE 14 MG/24 HOURS TOPICAL PATCH TD SCH (10:27)
[2017-06-20] MEDS: PRENATAL VITAMINS W/ FOLIC ACID TABLET (FP) PO SCH (10:27)
[2017-06-20] MEDS: levETIRAcetam 250 MG TABLET (FP) PO SCH ×2 (10:27→21:27)
[2017-06-20] MEDS: THIAMINE HCL 100 MG TABLET (FP) PO SCH (21:27)
[2017-06-21 06:55] VITALS: BP 134/83; PULSE 73; TEMP 97.8
[2017-06-21] MEDS ORDERED: PT OWN MED DRAWER 7, Y5N ONE (09:09)
[2017-06-21] MEDS: FLUoxetine HCL 10 MG CAPSULE (FP) PO SCH (09:10)
[2017-06-21] MEDS: PRENATAL VITAMINS W/ FOLIC ACID TABLET (FP) PO SCH (09:10)
[2017-06-21] MEDS: levETIRAcetam 250 MG TABLET (FP) PO SCH (09:10)
[2017-06-21] MEDS: NICOTINE 14 MG/24 HOURS TOPICAL PATCH TD SCH (09:11)
== END 2017-06-21 10:45 | disposition home or self-care (01) | DRG 772 ==
LOC: YASAS 12:08 → Y3W 16:43
PROVIDERS: ADMIT Psychiatry & Neurology Psychiatry; ATTEND Psychiatry & Neurology Psychiatry
PROC: HZ42ZZZ Group Counseling for Substance Abuse Treatment, Cognitive-Behavioral (ICD-10-PCS; principal; 2017-05-24)
DX: F10.20 Alcohol dependence, uncomplicated (principal); F12.20 Cannabis dependence, uncomplicated; F17.210 Nicotine dependence, cigarettes, uncomplicated; F19.24 Other psychoactive substance dependence with psychoactive substance-induced mood disorder; F19.282 Other psychoactive substance dependence with psychoactive substance-induced sleep disorder; F32.9 Major depressive disorder, single episode, unspecified; B18.2 Chronic viral hepatitis C; G40.909 Epilepsy, unspecified, not intractable, without status epilepticus; S59.911A Unspecified injury of right forearm, initial encounter
CPT/HCPCS: 36415; 80053; 81003; 85027; 86593; 87389; 90688; 93005; 93010; G0008